=== PATIENT | male | born 1980 | race Caucasian/White ===

== ENCOUNTER → 2016-09-06 | Outpatient (CLI) | payer OTHER ==
[~2016-09-06] MED LIST: ACET325T38 PO; CYCL-265 PO; HYDR-3754 PO; IBUP-15 PO; ONDA8TAB9 PO; OXYC-272 PO
--- NOTE | 2016-09-06 18:16 | Diagnostic Imaging Report ---
PROCEDURE: MR imaging cervical spine without contrast. TECHNIQUE: Multiplanar, multisequence MR imaging of the cervical spine was performed without contrast. DATE: September 06, 2016. COMPARISON: MRI cervical spine February 12, 2014. INDICATION: 36-year-old male, cervical radiculopathy. FINDINGS: The alignment of the cervical spine is unremarkable. The bone marrow signal is unremarkable. The visualized spinal cord is unremarkable. The disc heights are well preserved. There is no disc desiccation. C2-C3: There is no disc bulge. The uncovertebral and facet joints are unremarkable. There is no foraminal narrowing. There is no spinal canal stenosis. C3-C4: There is no disc bulge. The uncovertebral and facet joints are unremarkable. There is no foraminal narrowing. There is no spinal canal stenosis. C4-C5: There is no disc bulge. The uncovertebral and facet joints are unremarkable. There is no foraminal narrowing. There is no spinal canal stenosis. C5-C6: There is no disc bulge. There are right uncovertebral degenerative changes. There are no pronounced facet degenerative changes. There is moderate right and foraminal narrowing. There is no spinal canal stenosis. C6-C7: There is no disc bulge. There are right uncovertebral degenerative changes. There are no pronounced facet degenerative changes. There is moderate right foraminal narrowing. There is no spinal canal stenosis. C7-T1: There is no disc bulge. The uncovertebral and facet joints are unremarkable. There is no foraminal narrowing. There is no spinal canal stenosis. IMPRESSION: 1. Right-sided uncovertebral degenerative changes at C5-C6 and C6-C7 with moderate right foraminal narrowing. 2. No spinal stenosis or abnormal cervical spinal cord signal. Dictated by: Dictated on workstation # [id number]
== END ==
LOC: RAD 16:12
PROVIDERS: ATTEND Psychiatry & Neurology Clinical Neurophysiology
DX: M54.12 Radiculopathy, cervical region (principal)
CPT/HCPCS: 72141